=== PATIENT | female | born 1940 | race Asian ===

== ENCOUNTER 2021-10-07 07:48 | Emergency (ER) | payer OTHER, MEDICAID ==
[~2021-10-07] VITALS: Ht 152.4 cm; Wt 49.9 kg
[2021-10-07 07:54] VITALS: BP_SYST 131
--- NOTE | 2021-10-07 07:59 | NUR ---
Patient to ER bed 3 for evaluation. Side rails up. Report given to Mirlande ALMONTE.
--- NOTE | 2021-10-07 08:05 | NUR ---
DR GHOTRA AT BEDSIDE FOR EVAL.
--- NOTE | 2021-10-07 08:11 | NUR ---
PT BIBA FROM HOME FOR C/O DIZZINESS AND ANTERIOR CHEST WALL PAIN-NON RADITIMG AND PROGRESSIVELY WORSE HEADCHE FPR THE PATS TWO DAYS. PT AWAKE,ALERT , ORIENTED TO NAME AND SITUATION. 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 RESP EVEN AND UNLABORED, ON RA @98%. SKIN W/D/I, DENIES ANY VISION CHANGES. NAUSEA AND SPIITING UP NOTED, VOMIT BAG PROVIDED. IV SL TO LEFT AC FROM CERTIFIED MEDICINE AIDE, FLUSHED WELL. SAFETY PRECAUTIONS IN PLACE, WILL CONT TO MONITOR.
[2021-10-07 08:31] LABS: BASOPHILS % (AUTO) 0.5 % (0.0-2.0); EOSINOPHILS # (AUTO) 0.1 K/uL (0.0-0.4); HEMOGLOBIN 11.7 g/dL (12.0-16.0); LYMPHOCYTES % (AUTO) 15.7 % (20.5-51.5); MEAN CORPUSCULAR HEMOGLOBIN 32 pg (27-31); MEAN CORPUSCULAR HGB CONC 33 % (32-36); MEAN CORPUSCULAR VOLUME 96 fL (79.0-98.0); MONOCYTES # (AUTO) 0.2 K/uL (0.0-1.0); MONOCYTES % (AUTO) 3.9 % (1.7-9.3); NEUTROPHILS % (AUTO) 78.9 % (40.0-70.0); PLATELET COUNT (AUTO) 104 K/uL (130-430); RED BLOOD CELL COUNT(AUTO) 3.67 MIL/uL (4.2-6.2); RED CELL DISTRIBUTION WIDTH 13.3 % (9.0-15.0); WHITE BLOOD COUNT (AUTO) 6.3 K/uL (4.8-10.8)
[2021-10-07 08:42] LABS: ANION GAP 6 (5-15); CALCIUM 8.1 mg/dL (8.4-11.0); CHLORIDE 105 mmol/L (98-107); CREATININE 1.03 mg/dL (0.55-1.30); GLUCOSE 95 mg/dL (70-99); POTASSIUM 3.4 mmol/L (3.5-5.1); SODIUM SERUM 139 mmol/L (136-145); UREA NITROGEN, BLOOD 27 mg/dL (8-21)
[2021-10-07 08:51] LABS: ALANINE AMINOTRANSFERASE 18 U/L (12-78); ALBUMIN 3.2 g/dL (3.4-4.8); ASPARTATE AMINOTRANSFERASE 25 U/L (10-37); TOTAL BILIRUBIN 0.5 mg/dL (0.0-1.0)
--- NOTE | 2021-10-07 09:29 | NUR ---
NO ACUTE CHANGES IN CONDITION, PT WITH EYES CLOSED, IN NAD. VSS, ON CARDIAC MONTIOR, NSR.
--- NOTE | 2021-10-07 10:35 | NUR ---
FAMILY BROUGHT TO BEDSIDE FOR SUPPORT
[2021-10-07 10:52] VITALS: BP_SYST 154
[2021-10-07] MEDS ORDERED: IBUP-1969 PO (11:13)
[2021-10-07] MEDS ORDERED: ONDA-8 TL (11:13)
[2021-10-07] MEDS ORDERED: ONDANSETRON 4 MG ODT TAB PO ONE (11:15)
[2021-10-07] MEDS ORDERED: IBUPROFEN 600 MG TABLET PO ONE (11:15)
--- NOTE | 2021-10-07 11:26 | NUR ---
Patient given written and verbal discharge instructions and verbalizes understanding. ER MD discussed with patient the results and treatment provided. Patient in stable condition. ID arm band removed Rx of IBUPROFEN, ZOFRAN given. Patient educated on pain management and to follow up with PMD. Pain Scale 0/10. Opportunity for questions provided and answered. Medication side effect fact sheet provided.
== END 2021-10-07 11:26 | disposition home or self-care (01) ==
LOC: SED 07:48
DX: R07.89 Other chest pain (principal); E78.5 Hyperlipidemia, unspecified; R10.9 Unspecified abdominal pain
CPT/HCPCS: 36415; 71045; 80053; 84484; 85025; 93005; 99285